=== PATIENT | female | born 1950 | race Caucasian/White ===

== ENCOUNTER 2019-04-28 15:41 | Observation (INO) ==
[2019-04-28] MEDS ORDERED: ALBUTEROL SULFATE/IPRATROPIUM 3 ML NEBU IH ONE (16:25)
[2019-04-28 16:52] LABS: Hematocrit 47.3 % (37.0-47.0); Hemoglobin 15.2 gm/dL (12.5-16.0); Mean Cell Volume 94.6 fl (78-100); Mean Corpuscular Hemoglobin 30.4 pg (27-31); Mean Corpuscular Hgb Conc 32.1 g/dl (32-36); Mean Platelet Volume 10.1 fl (8-12.5); Neutrophil % 72.5 % (42-75.0); Platelet Count 446 K/mm3 (150-450); Red Cell Distribution Width 14.2 % (11.5-14.0); White Blood Count 13.7 K/mm3 (4.0-10.5)
[2019-04-28 16:54] LABS: Total Cells Counted 100
[2019-04-28] MEDS ORDERED: DILTIAZEM HCL 5 MG/ML VIAL IV ONE (16:54)
[2019-04-28 17:06] LABS: Troponin I Less than 0.017 ng/mL (0.00-0.10)
[2019-04-28 17:08] LABS: ALT 25 U/L (19-67); AST 23 U/L (0-48); Albumin * 3.9 gm/dl (3.4-5.0); Alkaline Phosphatase * 107 U/L (50-170); BNP * 2649 pg/mL (5-325); BUN/Creatinine Ratio 17.7 (9.0-21.6); Bilirubin, Total 0.3 mg/dL (0.0-1.1); Blood Urea Nitrogen 20 mg/dL (3-23); Ca. Corrected For Albumin 9.2 mg/dL (8.4-10.2); Calcium * 9.4 mg/dL (7.9-10.9); Chloride 100 mmol/L (97-106); Glucose * 131 mg/dL (70-110); Sodium 138 mmol/L (132-142); Total Protein 8.4 gm/dL (6.2-8.2)
[2019-04-28] MEDS ORDERED: LORazepam 2 MG/ML DISP.SYRIN IV ONE (17:09)
[2019-04-28] MEDS ORDERED: FUROSEMIDE 10 MG/ML VIAL IV ONE (17:10)
[2019-04-28] MEDS ORDERED: DILTIAZEM HCL 125 MG in DEXTROSE 5 % IN WATER 100 ML IV PRN ×2 (17:10)
[2019-04-28 17:19] LABS: Band 7 % (0-2.0); Lymphocyte 7 % (20-51); Monocyte 8 % (0-9); Neutrophil 78 % (42-75); Neutrophil # 10.7 K/mm3 (1.3-6.0); Platelet Estimate Normal (NORMAL); RBC Morphology Normal (NORMAL)
[2019-04-28] MEDS ORDERED: METHYLPREDNISOLONE SOD SUCC/PF 40 MG/ML VIAL IV ONE (17:39)
[2019-04-28] MEDS ORDERED: LEVOFLOXACIN IN DEXTROSE 5 % 500 MG/100 ML BAG IV ONE (17:55)
--- NOTE | 2019-04-28 18:05 | ERNOTE ---
Date of Service: 04/28/19 Time Seen by Provider: 04/28/19 16:16 Stated Complaint: URI Presenting Symptoms:: cough Source: patient Exam Limitations: no limitations Immunizations: IMMUNIZATION HX Immunizations Up to Date Yes History of Influenza Vaccine Yes Allergies/Adverse Reactions: Allergies No Known Allergies Allergy (Unverified 04/28/19 16:13) Home Medications: HOME MEDICATIONS NK 04/28/19 [Last Taken Unknown] - History of Present Ilness Narrative: Patient presents with 4 days of cough, mostly dry. Feels SOB. Has felt feverish. Is a smoker but denies underlying lung disease. Noes not take inhalers at home. Was getting increasingly SOB so presents to the ED. No chest pain. She feels anxious. No calf pain or leg swelling. Worse with exertion. She had RA sat 88% on arrival and has been placed on oxygen when I see her that helps Timing: constant, getting worse Severity: moderate Frequency/Possible Cause: Reports: no prior episodes Modifying Factors - Improves: Reports: nothing Modifying Factors - Worsens: Reports: activity Associated Symptoms: Reports: cough, shortness of breath. Denies: muscle aches Prior Treatment: Denies: recently seen, currently on antibiotics Review of Systems - Review of Systems Constitutional: Present: fatigue EYE: Present: no symptoms reported ENT: Absent: nose congestion Respiratory: Present: cough Cardiology: Absent: chest pain Gastrointestinal/Abdominal: Absent: abdominal pain Genitourinary: Absent: dysuria All Other Systems: All systems neg except as marked Medical History (Last Reviewed 04/28/19 @ 18:04 by Aron Argueta MD) No pertinent past medical history Surgical History: Surgical History (Last Reviewed 04/28/19 @ 18:04 by Aron Argueta MD) Hx of hysterectomy Hx of splenectomy Social History: (Last Reviewed 04/28/19 @ 18:04 by Aron Argueta MD) Tobacco: Smoking Status: Current every day smoker Smoking cigarettes per day: 20 Physical Exam - Physical Exam General Appearance: Present: alert, no apparent distress Head Exam: Present: normal inspection, no evidence of injury Eye Exam: Normal inspection: bilateral, PERRL: bilateral Ears, Nose, Throat: Present: normal ENT inspection Neck: Present: normal inspection Respiratory: Present: no accessory muscle use, chest nontender, crackles, wheezing Cardiovascular/Chest: Present: tachycardia, irregularly irregular Gastrointestinal/Abdominal: Present: normal bowel sounds, nontender, soft Back Exam: Absent: CVA tenderness (R), CVA tenderness (L) Extremity Exam: Present: normal inspection, non-tender, no edema Neurological Exam: Present: alert, no motor/sensory deficits Skin Exam: Present: normal color, warm/dry Progress - Results and Orders Patient's Lab Results:: I have reviewed the patient's lab results. - Vital Signs Patient's Vital Signs:: I have reviewed the patient's vital signs. Vital Signs: Vital Signs 04/28/19 16:11 04/28/19 16:28 04/28/19 16:46 Temperature 37.3 C Pulse Rate 104 H 110 H 163 H Respiratory Rate 22 H 17 24 H Blood Pressure 180/99 H 160/105 H O2 Sat by Pulse Oximetry 88 L 92 L 93 04/28/19 16:54 04/28/19 17:00 04/28/19 17:05 Temperature Pulse Rate 165 H 155 H 149 H Respiratory Rate 24 H 25 H Blood Pressure 152/130 H 167/89 H O2 Sat by Pulse Oximetry 94 04/28/19 17:07 04/28/19 17:35 04/28/19 17:43 Temperature Pulse Rate 100 106 H 123 H Respiratory Rate 16 29 H Blood Pressure 114/66 123/81 122/89 O2 Sat by Pulse Oximetry 93 95 - EKG EKG #1 EKG: atrial fibrillation EKG read: Interp. by me EKG Comments: A fib RVR rate 165. Non-specific ST/T wave changes. Likely rate related. No STEMI noted. EKG #2 EKG read: Interp. by me EKG Comments: Likely flutter rate 102. Non-specific ST/T wave changes, no STEMI noted - X-Ray X-Ray #1 X-Ray: chest Interpretation: Interp. by me X-ray Comments: No acute process. No real time radiology reads. - Progress/Reassessment Chief Complaint: Upper Respiratory Symptoms Progress Note-Subjective: 04/28/19 18:00 patient given IV Cardizem and HR decreased but by monitor back up over 120 and still a fib at 1800, will start cardizem drip after discussion alfredo Dr Gregory. Dr Gregory will admit, after discussion with him also IV ABx. She has sat 93% on 1L. Still with some occasional mild wheezes. No active distress. Patient is agreeable to admission. Departure Clinical Impression: Hypoxia, Complicated bronchitis, Atrial fibrillation with RVR, Elevated brain natriuretic peptide (BNP) level - Departure Disposition: Still a patient Condition: Fair
--- NOTE | 2019-04-28 20:23 | HP ---
Chief Complaint - Chief Complaint Date of Service: 04/28/19 Time of Service: 20:07 Chief Complaint: shortness of breath/cough History of Present Illness: Katelyn Holden is a 68-year-old white female with past medical history of hypertension, autoimmune hemolytic anemia status post splenectomy, who was admitted on 04/28/2019 because of shortness of breath and coughing mostly nonproductive. 4 days prior to admission the patient thought she was having some sinus issues with ear problems. Today while going to her car she started having shortness of breath, wheezing and felt feverish and so she went to our emergency room. She smokes 1 pack/day for the last 40 years. In the emergency room she was noticed to be saturating only in the 88% and needed to be on 1 L of oxygen. She was also noticed to be in atrial fibrillation with a rapid ventr icular rate of 165 per ED physician. She was given IV Cardizem 20 mg bolus and was admitted to the SCU for Cardizem drip. Medical History (Last Updated 04/28/19 @ 20:22 by Naina Leblanc RN) Autoimmune hemolytic anemia Hypertension Surgical History: Surgical History (Last Reviewed 04/28/19 @ 20:02 by Naina Leblanc RN) Hx of hysterectomy Hx of splenectomy Social History: (Last Updated 04/28/19 @ 20:27 by Naina Leblanc RN) Social History: Highest education level completed: Master's degree Tobacco: Smoking Status: Current every day smoker Smoking cigarettes per day: 20 Alcohol: alcohol intake: never Substance Use: substance use type: does not use Review Of Systems (GEN) - Review of Systems Generalized/Overall Review: Present: Fever. Absent: Weakness, Chills EENTM: Absent: Blurred Vision Respiratory: Present: Cough, Shortness of Breath, Orthopnea, Wheezing Cardiac: Present: Palpitations. Absent: Chest Pain, Edema Abdominal: Absent: Nausea, Vomiting, Abdominal Pain Genitourinary: Absent: Urgency, Frequency Musculoskeletal: Absent: Joint Pain Neurological: Absent: Headache Skin: Absent: Lesions, Rash Immunizations: IMMUNIZATION HX Immunizations Up to Date Yes History of Influenza Vaccine Yes Allergies/Adverse Reactions: Allergies Allergy/AdvReac Type Severity Reaction Status Date / Time No Known Allergies Allergy Unverified 04/28/19 16:13 Home Medications: HOME MEDICATIONS Atenolol [Tenormin] 50 mg PO DAILY 04/28/19 [Last Taken Unknown] Cider Vinegar [Apple Cider Vinegar] 1 tab PO DAILY 04/28/19 [Last Taken Unknown] [place]-3 Fatty Acids/Fish Oil [Fish Oil 1,000 mg Capsule] 1 ea PO .QOD 04/28/19 [Last Taken Unknown] Sertraline HCl [Zoloft] 50 mg PO DAILY 04/28/19 [Last Taken Unknown] Taurine [Hubert Taurine] 4,000 mg PO DAILY 04/28/19 [Last Taken Unknown] Vit A/Vit C/Vit E/Zinc/Copper [Preservision Areds Softgel] 1 ea PO DAILY 04/28/19 [Last Taken Unknown] Exam - Exam Vital Signs: Vital Signs - Last Taken Temp 37.3 C 04/28/19 16:11 Pulse 103 H 04/28/19 19:20 Resp 34 H 04/28/19 19:20 BP 90/45 04/28/19 19:20 Pulse Ox 95 04/28/19 19:20 Constitutional: Present: Alert, Oriented x3, Cooperative ENT Exam: Present: hearing grossly normal Eye Exam: bilateral eye: normal inspection, PERRL, EOMI Neck: Present: supple. Absent: lymphadenopathy (R), lymphadenopathy (L) Respiratory: Present: decreased breath sounds, No rales, No wheezing Cardiovascular/Chest: Present: regular rate, rhythm, no murmur, tachycardia Abdomen: Present: Normal bowel sounds, soft, nontender, nondistended Extremity: Present: no pedal edema, no calf tenderness Diagnostic Studies: Abnormal Lab Results 04/28/19 04/28/19 04/28/19 Range/Units 16:25 16:25 16:25 WBC 13.7 H (4.0-10.5) K/mm3 Hct 47.3 H (37.0-47.0) % RDW 14.2 H (11.5-14.0) % Immature Gran # (Auto) 0.05 H (0.000-0.0310) K/mm3 Neutrophils % (Manual) 78 H (42-75) % Band Neuts % (Manual) 7 H (0-2.0) % Lymphocytes % 12.8 L (20-51) % Lymphocytes % (Manual) 7 L (20-51) % Monocytes % 12.9 H (0.0-9) % Neutrophils # 10.0 H (1.3-6.0) K/mm3 Neutrophils # (Manual) 10.7 H (1.3-6.0) K/mm3 Lymphocytes # (Manual) 1.0 L (1.5-3.5) k/mm3 Monocytes # 1.8 H (0.0-1.0) k/mm3 Monocytes # (Manual) 1.1 H (0.0-1.0) k/mm3 Anion Gap 18.0 H (6.8-13.8) mmol/L Est GFR (Non-Af Amer) 51 L (60-130) mL/min Random Glucose 131 H (70-110) mg/dL Lactic Acid, Venous 2.7 H* (0.4-2.0) mmol/L B-Natriuretic Peptide 2649 H (5-325) pg/mL Total Protein 8.4 H (6.2-8.2) gm/dL Laboratory Results WBC 13.7 K/mm3 (4.0-10.5) H 04/28/19 16:25 RBC 5.00 M/mm3 (4.2-5.4) 04/28/19 16:25 Hgb 15.2 gm/dL (12.5-16.0) 04/28/19 16:25 Hct 47.3 % (37.0-47.0) H 04/28/19 16:25 MCV 94.6 fl (78-100) 04/28/19 16:25 MCH 30.4 pg (27-31) 04/28/19 16: MCHC 32.1 g/dl (32-36) 04/28/19 16:25 RDW 14.2 % (11.5-14.0) H 04/28/19 16:25 Plt Count 446 K/mm3 (150-450) 04/28/19 16:25 MPV 10.1 fl (8-12.5) 04/28/19 16:25 Immature Gran % (Auto) 0.40 % (0.001-0.429) 04/28/19 16:25 Immature Gran # (Auto) 0.05 K/mm3 (0.000-0.0310) H 04/28/19 16:25 Neutrophils % 72.5 % (42-75.0) 04/28/19 16:25 Neutrophils % (Manual) 78 % (42-75) H 04/28/19 16:25 Band Neuts % (Manual) 7 % (0-2.0) H 04/28/19 16:25 Lymphocytes % 12.8 % (20-51) L 04/28/19 16:25 Lymphocytes % (Manual) 7 % (20-51) L 04/28/19 16:25 Monocytes % 12.9 % (0.0-9) H 04/28/19 16:25 Monocytes % (Manual) 8 % (0-9) 04/28/19 16:25 Eosinophils % 0.5 % (0.0-3.0) 04/28/19 16:25 Basophils % 0.9 % (0.0-1.0) 04/28/19 16:25 Nucleated RBC % 0.0 k/mm3 (0-1) 04/28/19 16:25 Neutrophils # 10.0 K/mm3 (1.3-6.0) H 04/28/19 16:25 Neutrophils # (Manual) 10.7 K/mm3 (1.3-6.0) H 04/28/19 16:25 Lymphocytes # 1.75 k/mm3 (1.5-3.5) 04/28/19 16:25 Lymphocytes # (Manual) 1.0 k/mm3 (1.5-3.5) L 04/28/19 16:25 Monocytes # 1.8 k/mm3 (0.0-1.0) H 04/28/19 16:25 Monocytes # (Manual) 1.1 k/mm3 (0.0-1.0) H 04/28/19 16:25 Eosinophils # 0.1 k/mm3 (0.0-0.7) 04/28/19 16:25 Absolute Basophils 0.1 k/mm3 (0.0-0.1) 04/28/19 16:25 Platelet Estimate Normal (NORMAL) 04/28/19 16:25 RBC Morphology Normal (NORMAL) 04/28/19 16:25 Sodium 138 mmol/L (132-142) 04/28/19 16:25 Plasma Sodium 138 mmol/L (130-142) 04/28/19 16:25 Potassium 4.0 mmol/L (3.4-4.6) 04/28/19 16:25 Chloride 100 mmol/L (97-106) 04/28/19 16:25 Carbon Dioxide 24.0 mmol/L (24-32.6) 04/28/19 16:25 Anion Gap 18.0 mmol/L (6.8-13.8) H 04/28/19 16:25 BUN 20 mg/dL (3-23) 04/28/19 16:25 Creatinine 1.13 mg/dL (0.4-1.4) 04/28/19 16:25 Est GFR (Non-Af Amer) 51 mL/min (60-130) L 04/28/19 16:25 BUN/Creatinine Ratio 17.7 (9.0-21.6) 04/28/19 16:25 Random Glucose 131 mg/dL (70-110) H 04/28/19 16:25 Lactic Acid, Venous 1.2 mmol/L (0.4-2.0) 04/28/19 19:15 Calcium 9.4 mg/dL (7.9-10.9) 04/28/19 16:25 Calcium Adj for Albumin 9.2 mg/dL (8.4-10.2) 04/28/19 16:25 Magnesium 2.1 mg/dL (1.2-2.8) 04/28/19 16:25 Total Bilirubin 0.3 mg/dL (0.0-1.1) 04/28/19 16:25 AST 23 U/L (0-48) 04/28/19 16:25 ALT 25 U/L (19-67) 04/28/19 16:25 Alkaline Phosphatase 107 U/L (50-170) 04/28/19 16:25 Troponin I Less than 0.017 ng/mL (0.00-0.10) 04/28/19 16:25 B-Natriuretic Peptide 2649 pg/mL (5-325) H 04/28/19 16:25 Total Protein 8.4 gm/dL (6.2-8.2) H 04/28/19 16:25 Albumin 3.9 gm/dl (3.4-5.0) 04/28/19 16:25 Influenza Type A Ag Negative (NEGATIVE) 04/28/19 16:28 Influenza Type B Ag Negative (NEGATIVE) 04/28/19 16:28 Assessment/Plan - Narrative Narrative: Katelyn is a 76-year-old white female who was admitted for cough and shortness of breath with hypoxia and atrial fibrillation with rapid ventricular response, new onset. Patient is now in sinus tachycardia and Cardizem drip is stopped. We will start her on Cardizem oral 30 mg 4 times daily. She was told that she was at increased risk for a blood clot to her coronaries or to your cerebral arteries and with a CHADs-Vasc of 3, she needs to be on anticoagulation. On any of the newer anticoagulation or Coumadin but only wants to be on an aspirin. - Assessment/Plan (1) Atrial fibrillation with RVR Problem: Resolved (2) Hypoxia Problem: Acute (3) Complicated bronchitis Problem: Acute (4) Elevated brain natriuretic peptide (BNP) level Problem: Acute
[2019-04-28] MEDS ORDERED: ALBUTEROL SULFATE/IPRATROPIUM 3 ML NEBU IH PRN (20:26)
[2019-04-28] MEDS ORDERED: AZITHROMYCIN 250 MG TABLET PO ONE (20:28)
[2019-04-28] MEDS ORDERED: ASPIRIN 325 MG TABLET.DR PO ONE (20:32)
[2019-04-28] MEDS: predniSONE 20 MG TABLET PO SCH (20:49)
[2019-04-28] MEDS ORDERED: DILTIAZEM HCL 30 MG TABLET PO SCH (21:00)
[2019-04-29] MEDS ORDERED: DILTIAZEM HCL 30 MG TABLET PO ONE (03:00)
[2019-04-29 07:27] LABS: Hematocrit 45.3 % (37.0-47.0); Hemoglobin 14.6 gm/dL (12.5-16.0); Mean Cell Volume 92.6 fl (78-100); Mean Corpuscular Hemoglobin 29.9 pg (27-31); Mean Corpuscular Hgb Conc 32.2 g/dl (32-36); Mean Platelet Volume 9.9 fl (8-12.5); Neutrophil # 6.9 K/mm3 (1.3-6.0); Neutrophil % 84.6 % (42-75.0); Platelet Count 425 K/mm3 (150-450); Red Blood Count 4.89 M/mm3 (4.2-5.4); Red Cell Distribution Width 14.1 % (11.5-14.0); White Blood Count 8.2 K/mm3 (4.0-10.5)
[2019-04-29 07:52] LABS: Anion Gap 18.7 mmol/L (6.8-13.8); BUN/Creatinine Ratio 20.5 (9.0-21.6); Calcium * 9.6 mg/dL (7.9-10.9); Carbon Dioxide 22.8 mmol/L (24-32.6); Estimated Creat Clear 29.6; Potassium 4.5 mmol/L (3.4-4.6); TSH * 1.122 uIU/mL (0.358-3.74)
[2019-04-29] MEDS: predniSONE 20 MG TABLET PO SCH (08:28)
[2019-04-29] MEDS ORDERED: ACETAMINOPHEN 500 MG TABLET PO PRN (08:40)
[2019-04-29] MEDS ORDERED: SERTRALINE HCL 50 MG TABLET PO SCH (09:00)
[2019-04-29] MEDS ORDERED: ATENOLOL 50 MG TABLET PO SCH (09:00)
[2019-04-29] MEDS ORDERED: ASPIRIN 81 MG TAB.CHEW PO SCH (09:00)
--- NOTE | 2019-04-29 09:30 | DS ---
(1) Atrial fibrillation with RVR Problem: Resolved (2) Hypoxia Problem: Resolved (3) Complicated bronchitis Diagnosis(s): Acute bronchitis with emphysema on CXR Problem: Acute (4) Elevated brain natriuretic peptide (BNP) level Problem: Acute (5) Hypertension Problem: Acute Date of Discharge:: 04/29/19 Hospital Course: Katelyn Holden is a 68-year-old white female with past medical history of hypertension, autoimmune hemolytic anemia status post splenectomy, who was admitted on 04/28/2019 because of shortness of breath and coughing mostly nonproductive. 4 days prior to admission the patient thought she was having some sinus issues with ear problems. Today while going to her car she started having shortness of breath, wheezing and felt feverish and so she went to our emergency room. She smokes 1 pack/day for the last 40 years. In the emergency room she was noticed to be saturating only in the 88% and needed to be on 1 L of oxygen. Her CXR did not show acute cardiopulmonary findings but had diffuse emphysema. She was also noticed to be in atrial fibrillation with a rapid ventricular rate of 165 per ED physician. She was given IV Cardizem 20 mg bolus and was admitted to the SCU for Cardizem drip. She converted spontaneously. Since she had a CHADs-vasc score of 3 , she was told she had increased risk for a heart attack or stroke and needed to be on anticoagulatin- NOAG or warfarin. She refused but agreed to ASA. She is oxygenating above 93 % and HR is 79, sinus on telemetry. She is already on Atenolol. Will discharge her and follow up with her PCP. She will need a PFT on outpatient basis when she is feeling much better. She was told to stop smoking and to talk this over with her PCP. Procedures Performed: none Results and Findings: Lab Pending Results 04/28/19 16:25: WBC 13.7 H, RBC 5.00, Hgb 15.2, Hct 47.3 H, MCV 94.6, MCH 30.4, MCHC 32.1, RDW 14.2 H, Plt Count 446, MPV 10.1, Immature Gran % (Auto) 0.40, Immature Gran # (Auto) 0.05 H, Neutrophils % 72.5, Neutrophils % (Manual) 78 H, Band Neuts % (Manual) 7 H, Lymphocytes % 12.8 L, Lymphocytes % (Manual) 7 L, Monocytes % 12.9 H, Monocytes % (Manual) 8, Eosinophils % 0.5, Basophils % 0.9, Nucleated RBC % 0.0, Neutrophils # 10.0 H, Neutrophils # (Manual) 10.7 H, Lymphocytes # 1.75, Lymphocytes # (Manual) 1.0 L, Monocytes # 1.8 H, Monocytes # (Manual) 1.1 H, Eosinophils # 0.1, Absolute Basophils 0.1, Platelet Estimate Normal, RBC Morphology Normal 04/28/19 16:25: Sodium 138, Plasma Sodium 138, Potassium 4.0, Chloride 100, Carbon Dioxide 24.0, Anion Gap 18.0 H, BUN 20, Creatinine 1.13, Est GFR (Non-Af Amer) 51 L, BUN/Creatinine Ratio 17.7, Random Glucose 131 H, Calcium 9.4, Calcium Adj for Albumin 9.2, Total Bilirubin 0.3, AST 23, ALT 25, Alkaline Phosphatase 107, Troponin I Less than 0.017, B-Natriuretic Peptide 2649 H, Total Protein 8.4 H, Albumin 3.9 04/28/19 16:25: Lactic Acid, Venous 2.7 H* 04/28/19 16:25: Magnesium 2.1 04/28/19 16:28: Influenza Type A Ag Negative, Influenza Type B Ag Negative 04/28/19 19:15: Lactic Acid, Venous 1.2 04/29/19 07:19: WBC 8.2 D, RBC 4.89, Hgb 14.6, Hct 45.3, MCV 92.6, MCH 29.9, MCHC 32.2, RDW 14.1 H, Plt Count 425, MPV 9.9, Immature Gran % (Auto) 0.60 H, Immature Gran # (Auto) 0.05 H, Neutrophils % 84.6 H, Lymphocytes % 12.0 L, [place] cytes % 2.3, Eosinophils % 0.0, Basophils % 0.5, Nucleated RBC % 0.0, Neutrophils # 6.9 H, Lymphocytes # 0.98 L, Monocytes # 0.2, Eosinophils # 0.0, Absolute Basophils 0.0 04/29/19 07:19: Sodium 136, Plasma Sodium 137, Potassium 4.5, Chloride 99, Carbon Dioxide 22.8 L, Anion Gap 18.7 H, BUN 26 H, Creatinine 1.27, Est GFR (Non-Af Amer) 44 L, BUN/Creatinine Ratio 20.5, Random Glucose 155 H, Calcium 9.6, TSH 1.122 Discharge Location: Home Disposition: Home self-care Condition: Stable Discharge Activity: Activity as tolerated Discharge Diet: Low salt Additional Patient Instructions (free text): Follow up with PCP in 4-5 days. Prescriptions (Any new or edited meds): Aspirin [Aspirin Chewable] 81 mg PO DAILY #30 tab.chew Transmission Status: Pending to [facility] #[id number] Azithromycin 250 mg PO DAILY 4 Days #4 tab Transmission Status: Pending to [facility] #[id number] Albuterol Sulfate/Ipratropium [Duoneb 2.5-0.5MG/3ML Soln] 3 ml INHALATION BID #7 nebu Transmission Status: Pending to [facility] #[id number] predniSONE [Prednisone] 40 mg PO DAILY 4 Days #8 tab Transmission Status: Pending to [facility] #[id number] Albuterol Sulfate [Proair Hfa] 1 - 2 puff INHALATION Q4H PRN #1 inhaler PRN Reason: Shortness Of Breath Transmission Status: Pending to [facility] #[id number] Complete Home Medications List: Complete Home Medication List: Atenolol [Tenormin] 50 mg PO DAILY 04/28/19 Cider Vinegar [Apple Cider Vinegar] 1 tab PO DAILY 04/28/19 [place]-3 Fatty Acids/Fish Oil [Fish Oil 1,000 mg Capsule] 1 ea PO .QOD 04/28/19 Sertraline HCl [Zoloft] 50 mg PO DAILY 04/28/19 Taurine [Hubert Taurine] 4,000 mg PO DAILY 04/28/19 Vit A/Vit C/Vit E/Zinc/Copper [Preservision Areds Softgel] 1 ea PO DAILY 04/28/19 Albuterol Sulfate [Proair Hfa] 1 - 2 puff INHALATION Q4H PRN #1 inhaler 04/29/19 Albuterol Sulfate/Ipratropium [Duoneb 2.5-0.5MG/3ML Soln] 3 ml INHALATION BID #7 nebu 04/29/19 Aspirin [Aspirin Chewable] 81 mg PO DAILY #30 tab.chew 04/29/19 Azithromycin 250 mg PO DAILY 4 Days #4 tab 04/29/19 predniSONE [Prednisone] 40 mg PO DAILY 4 Days #8 tab 04/29/19
[2019-04-29 10:39] VITALS: BP 152/88
== END 2019-04-29 11:00 | disposition home or self-care (01) ==
LOC: ER 15:41 → SCU 15:41 → MS 04-29 06:39
PROVIDERS: ADMIT Internal Medicine; ATTEND Internal Medicine
DX: I10 Essential (primary) hypertension; J20.9 Acute bronchitis, unspecified; I48.91 Unspecified atrial fibrillation; R09.02 Hypoxemia
CPT/HCPCS: 36415; 71020; 71046; 80048; 80053; 83519; 83605; 83735; 83880; 84443; 84484; 85025; 87040; 87400; 87449; 93005; 94640; 94664; 94760; 96365; 96366; 96375; 99285; G0378